=== PATIENT | female | born 1965 | race Hispanic/Latino ===

== ENCOUNTER 2019-03-15 13:41 | Outpatient (CLI) | payer BC ==
--- NOTE | 2019-03-15 14:25 | ULT ---
THYROID ULTRASOUND: COMPARISON: Previous exam from 04/24/2017. TECHNIQUE: Multiple longitudinal and transverse images of the thyroid gland obtained using a Multi[employer] linear a rray transducer. Real-time color-flow images obtained. FINDINGS: The right thyroid measures 5.4 x 1.7 x 1.9 cm, while the left measures 4.5 x 1.2 x 1.8 cm. The left thyroid lobe lobe contains a tiny, approximately 4 x 3 mm, nodule, unchanged since the previ ous comparison exam. The previously noted right thyroid cluster of cysts is not definitively visualized at this time. IMPRESSION: TR2-No suspicious lesions seen. Transcribed Date/Time: 03/15/2019 2:43 PM
== END 2019-03-15 13:42 | disposition home or self-care (01) ==
LOC: BICULT 13:41
PROVIDERS: ATTEND Internal Medicine Endocrinology, Diabetes & Metabolism
DX: E04.0 Nontoxic diffuse goiter (principal)
CPT/HCPCS: 76536

== ENCOUNTER 2020-09-29 13:12 | Outpatient (CLI) | payer BC ==
--- NOTE | 2020-09-29 14:59 | ULT ---
THYROID ULTRASOUND: Date: 09/29/2020 INDICATION: History of thyroid nodule. COMPARISON: Prior exam dated 03/15/2019. FINDINGS: The thyroid gland remains heterogeneous. A small thyroid cyst involving the mid left thyroid lobe on the prior examination is no longer demonstrated. The right thyroid lobe measures 4.7 x 2.2 x 1.9 cm. The left thyroid lobe measures 4.7 x 1.7 x 1.6 cm. The thyroid isthmus measures 0.47 cm. IMPRESSION: No suspicious thyroid lesion identified. POS: [facility]
== END 2020-09-29 13:13 | disposition home or self-care (01) ==
LOC: BICULT 13:12
PROVIDERS: ATTEND Internal Medicine Endocrinology, Diabetes & Metabolism
DX: E04.8 Other specified nontoxic goiter (principal); E04.0 Nontoxic diffuse goiter
CPT/HCPCS: 76536